=== PATIENT | male | born 1975 | race Caucasian/White ===

== ENCOUNTER 2022-03-16 08:22 | Outpatient (CLI) | payer OTHER, SELFPAY ==
[2022-03-16 14:43] LABS: Cholesterol* 225 mg/dL (90-199)
[2022-03-16 14:44] LABS: HDL Cholesterol* 41 mg/dL (>=40); LDL Cholesterol Calculated 145 mg/dL (<100); Triglycerides* 197 mg/dL (40-149)
== END 2022-03-16 08:23 | disposition home or self-care (01) ==
PROVIDERS: PCP Family Medicine; Visit Provider Family Medicine
DX: Z00.00 Encounter for general adult medical examination without abnormal findings (principal); E78.5 Hyperlipidemia, unspecified; Z12.5 Encounter for screening for malignant neoplasm of prostate
CPT/HCPCS: 80061; 84153

== ENCOUNTER 2024-05-14 09:06 | Outpatient (CLI) | payer OTHER, SELFPAY | END 2024-05-14 09:07 | disposition home or self-care (01) | PROVIDERS: PCP Family Medicine; Visit Provider Family Medicine | DX: E78.5 Hyperlipidemia, unspecified (principal); Z13.0 Encounter for screening for diseases of the blood and blood-forming organs and certain disorders involving the immune mechanism | CPT/HCPCS: 80048; 80061; 84460; 85025 ==

== ENCOUNTER 2025-06-10 09:11 | Outpatient (CLI) | payer OTHER, SELFPAY | END 2025-06-10 09:12 | disposition home or self-care (01) | PROVIDERS: PCP Family Medicine; Visit Provider Family Medicine | DX: E78.2 Mixed hyperlipidemia (principal) | CPT/HCPCS: 80048; 80061; 84460 ==